=== PATIENT | female | born 1940 | race Hispanic/Latino ===

== ENCOUNTER 2022-09-10 03:18 | Inpatient (IN) | payer MEDICARE ==
[~2022-09-10] VITALS: Ht 121.9 cm; Wt 60.8 kg
[~2022-09-10 03:18] MED LIST: ASA81 MG PO; B COMPLEX #11 EACH PO; LANTUS100 UNIT/2 SQ; METFORMIN HCL500 M3 PO; Z.0.AMLODIPINE BESY1 PO; Z.0.ATENOLOL25 MG PO; Z.0.B12 5,000 MCG1 E SL; Z.0.CLONIDINE HCL0.2 PO; Z.0.JANUVIA100 MG PO; Z.0.LATANOPROST2.5 M OP; Z.0.LISINOPRIL40 MG PO; Z.0.NATEGLINIDE120 M PO; Z.0.SIMVASTATIN40 MG PO; Z.2.HYDROCODON-ACE1 PO; [UNRECOGNIZED DRUG - CODE] PO; [UNRECOGNIZED DRUG - OTHER] PO
[2022-09-10] MEDS ORDERED: ONDANSETRON HCL INJ 2MG/ML 2ML 2 MG/ML VIAL IV STA (03:23)
[2022-09-10] MEDS ORDERED: SODIUM CHLORIDE 0.9% 1000ML 1,000 ML IV ONE (03:30)
[2022-09-10] MEDS ORDERED: ACETAMINOPHEN 325 MG TAB PO ONE (03:30)
[2022-09-10 03:46] LABS: BASOPHILS % 0.3 % (0.0-1.0); HEMATOCRIT 35.6 % (34.2-44.1); HEMOGLOBIN 11.2 g/dL (12.0-16.0); LYMPHOCYTES # (AUTO) 0.5 (1.0-3.2); LYMPHOCYTES % 4.8 % (18.0-39.1); MEAN CORPUSCULAR HEMOGLOBIN 27.2 pg (28-32); MEAN CORPUSCULAR HGB CONC 31.5 g/dL (31-35); MEAN CORPUSCULAR VOLUME 86.4 fL (81-99); MONOCYTES # (AUTO) 0.2 (0.2-0.8); MONOCYTES % 2.1 % (4.4-11.3); NEUTROPHILS # (AUTO) 9.1 (2.1-6.9); NEUTROPHILS % 92.4 % (38.7-80.0); PLATELET COUNT 270 x10e3/uL (140-360); RED BLOOD COUNT 4.12 x10e6/uL (3.6-5.1); RED CELL DISTRIBUTION WIDTH 12.7 % (11.7-14.4)
[2022-09-10 04:07] LABS: ALBUMIN 4.4 g/dL (3.5-5.0); ALBUMIN/GLOBULIN RATIO 1.2 (0.8-2.0); ANION GAP 23.2 mmol/L (8-16); CALCIUM 8.2 mg/dL (8.4-10.2); CREATININE, SERUM 1.08 mg/dL (0.57-1.11); POTASSIUM 3.2 mmol/L (3.5-5.1)
[2022-09-10 04:11] LABS: CLARITY,URINE CLEAR (CLEAR); COLOR,URINE YELLOW (YELLOW); KETONES,URINE 2+ (NEGATIVE); LEUKOCYTE ESTERASE ,URINE NEGATIVE (NEGATIVE); NITRITE,URINE NEGATIVE (NEGATIVE); PROTEIN,URINE DIPSTICK 2+ (NEGATIVE); URINE UROBILINOGEN 0.2 mg/dL (0.2 - 1)
[2022-09-10 04:14] LABS: CREATINE KINASE MB 3.6 ng/mL (0-5.0)
[2022-09-10 04:16] LABS: BACTERIA,URINE RARE /HPF; EPITHELIAL CELLS,URINE FEW /LPF; RBC,URINE 0-5 /HPF (0-5); WBC,URINE (MAN) 0-5 /HPF (0-5)
[2022-09-10] MEDS ORDERED: CEFEPIME HCL 1 GM VIAL ONE (04:20)
[2022-09-10] MEDS ORDERED: ACETAMINOPHEN 1000 MG/100 ML IV STA (04:25)
[2022-09-10] MEDS ORDERED: IOPAMIDOL 370 MG/ML 100 ML INFUS..BTL INJ ONE (05:23)
[2022-09-10] MEDS: SODIUM CHLORIDE 0.9% 1000ML 1,000 ML IV SCH ×2 (06:43→18:33)
[2022-09-10 10:47] VITALS: BP 156/86
[2022-09-10 10:55] VITALS: BP 156/86
[2022-09-10] MEDS: ONDANSETRON HCL INJ 2MG/ML 2ML 2 MG/ML VIAL IV PRN (11:55)
[2022-09-10 14:00] VITALS: BP 183/80
[2022-09-10 16:38] VITALS: BP 179/79
[2022-09-10] MEDS ORDERED: DEXTROSE 50% SYRINGE 50 ML IV PRN (18:15)
[2022-09-10 18:21] LABS: ANION GAP 20.7 mmol/L (8-16); CALCIUM 8.4 mg/dL (8.4-10.2); CREATININE, SERUM 0.94 mg/dL (0.57-1.11)
[2022-09-10] MEDS: AMLODIPINE BESYLATE 10 MG TAB PO SCH (18:35)
[2022-09-10 18:37] LABS: POTASSIUM 2.7 mmol/L (3.5-5.1)
[2022-09-10] MEDS ORDERED: POTASSIUM CHLORIDE 20 MEQ TAB CR PO ONE ×2 (19:30→23:00)
[2022-09-10 20:00] VITALS: BP 168/75
[2022-09-10] MEDS: INSULIN LISPRO 100 UNIT/1 ML 3ML VIAL SQ SCH (21:30)
[2022-09-10] MEDS ORDERED: ACETAMINOPHEN 325 MG TAB PO PRN (21:30)
[2022-09-11] VITALS (8 sets, daily range): BP systolic 96–182; BP diastolic 65–105
[2022-09-11] MEDS: HYDRALAZINE HCL 20 MG/ML VIAL IV PRN ×2 (01:13→22:01)
[2022-09-11] MEDS: SODIUM CHLORIDE 0.9% 1000ML 1,000 ML IV SCH ×2 (02:10→12:50)
[2022-09-11 06:02] LABS: BASOPHILS % 0.1 % (0.0-1.0); HEMATOCRIT 36.7 % (34.2-44.1); HEMOGLOBIN 11.8 g/dL (12.0-16.0); LYMPHOCYTES # (AUTO) 0.8 (1.0-3.2); LYMPHOCYTES % 6.5 % (18.0-39.1); MEAN CORPUSCULAR HEMOGLOBIN 27.4 pg (28-32); MEAN CORPUSCULAR HGB CONC 32.2 g/dL (31-35); MEAN CORPUSCULAR VOLUME 85.2 fL (81-99); MONOCYTES # (AUTO) 0.8 (0.2-0.8); MONOCYTES % 6.6 % (4.4-11.3); NEUTROPHILS % 86.4 % (38.7-80.0); PLATELET COUNT 309 x10e3/uL (140-360); RED BLOOD COUNT 4.31 x10e6/uL (3.6-5.1); RED CELL DISTRIBUTION WIDTH 13.2 % (11.7-14.4)
[2022-09-11 06:24] LABS: ANION GAP 18.9 mmol/L (8-16); CALCIUM 8.4 mg/dL (8.4-10.2); CREATININE, SERUM 0.87 mg/dL (0.57-1.11)
[2022-09-11 06:25] LABS: POTASSIUM 2.9 mmol/L (3.5-5.1)
[2022-09-11] MEDS ORDERED: POTASSIUM CHLORIDE 20 MEQ TAB CR PO ONE ×2 (07:00→11:00)
[2022-09-11] MEDS: INSULIN LISPRO 100 UNIT/1 ML 3ML VIAL SQ SCH ×4 (07:30→22:05)
[2022-09-11] MEDS ORDERED: NON-FORMULARY MEDICATION (Lisinopril 40 MG) PO SCH (09:30)
[2022-09-11] MEDS: AMLODIPINE BESYLATE 10 MG TAB PO SCH (09:58)
[2022-09-11] MEDS ORDERED: AMLODIPINE BESYLATE 10 MG TAB PO SCH (10:00)
[2022-09-11] MEDS: ONDANSETRON HCL INJ 2MG/ML 2ML 2 MG/ML VIAL IV PRN (10:01)
[2022-09-11] MEDS: LISINOPRIL 20 MG TAB PO SCH (10:15)
[2022-09-11] MEDS: LATANOPROST(OPTH) 2.5 ML BTL OP SCH (22:00)
[2022-09-12] VITALS (7 sets, daily range): BP systolic 155–177; BP diastolic 58–85
[2022-09-12] MEDS: ONDANSETRON HCL INJ 2MG/ML 2ML 2 MG/ML VIAL IV PRN (01:04)
[2022-09-12] MEDS: SODIUM CHLORIDE 0.9% 1000ML 1,000 ML IV SCH ×3 (04:29→21:29)
[2022-09-12 06:30] LABS: ALBUMIN 3.7 g/dL (3.5-5.0); ALBUMIN/GLOBULIN RATIO 1.1 (0.8-2.0); ANION GAP 18.2 mmol/L (8-16); CALCIUM 8.7 mg/dL (8.4-10.2); CREATININE, SERUM 0.84 mg/dL (0.57-1.11); MAGNESIUM 1.3 MG/DL (1.3-2.1); POTASSIUM 3.2 mmol/L (3.5-5.1)
[2022-09-12] MEDS ORDERED: PANTOPRAZOLE SOD 40 MG TABEC PO SCH (07:30)
[2022-09-12] MEDS: INSULIN LISPRO 100 UNIT/1 ML 3ML VIAL SQ SCH ×4 (08:30→21:00)
[2022-09-12] MEDS: ASPIRIN 81 MG ENTERIC COATED PO SCH (09:04)
[2022-09-12] MEDS: SITAGLIPTIN 100 MG TAB PO SCH (09:04)
[2022-09-12] MEDS: AMLODIPINE BESYLATE 10 MG TAB PO SCH (09:04)
[2022-09-12] MEDS: LISINOPRIL 20 MG TAB PO SCH (09:06)
[2022-09-12] MEDS: ATENOLOL 50 MG TAB PO SCH (11:59)
[2022-09-12] MEDS ORDERED: POTASSIUM CHLORIDE 20 MEQ TAB CR PO ONE (12:00)
[2022-09-12] MEDS ORDERED: KCL 20 MEQ PACKET/ ORAL SOLN PO ONE (12:15)
[2022-09-12] MEDS: PANTOPRAZOLE SOD 40 MG TABEC PO SCH (16:55)
[2022-09-12] MEDS ORDERED: SIMVASTATIN 40 MG TAB PO SCH (21:00)
[2022-09-12] MEDS: LATANOPROST(OPTH) 2.5 ML BTL OP SCH (21:28)
[2022-09-13] VITALS: BP 168/66
[2022-09-13] MEDS: METOCLOPRAMIDE HCL 10 MG/2ML VIAL IV SCH ×3 (00:43→11:59)
[2022-09-13 04:00] VITALS: BP 177/66
[2022-09-13 05:54] LABS: BASOPHILS % 0.2 % (0.0-1.0); EOSINOPHILS % 0.3 % (0.0-6.0); HEMATOCRIT 33.7 % (34.2-44.1); HEMOGLOBIN 11.1 g/dL (12.0-16.0); LYMPHOCYTES # (AUTO) 1.4 (1.0-3.2); LYMPHOCYTES % 11.7 % (18.0-39.1); MEAN CORPUSCULAR HEMOGLOBIN 27.2 pg (28-32); MEAN CORPUSCULAR HGB CONC 32.9 g/dL (31-35); MEAN CORPUSCULAR VOLUME 82.6 fL (81-99); MONOCYTES % 8.3 % (4.4-11.3); NEUTROPHILS # (AUTO) 9.6 (2.1-6.9); NEUTROPHILS % 78.9 % (38.7-80.0); PLATELET COUNT 281 x10e3/uL (140-360); RED BLOOD COUNT 4.08 x10e6/uL (3.6-5.1); RED CELL DISTRIBUTION WIDTH 13.8 % (11.7-14.4)
[2022-09-13 06:11] LABS: ANION GAP 14.1 mmol/L (8-16); CALCIUM 8.2 mg/dL (8.4-10.2); CREATININE, SERUM 0.82 mg/dL (0.57-1.11); MAGNESIUM 1.4 MG/DL (1.3-2.1); POTASSIUM 3.1 mmol/L (3.5-5.1)
[2022-09-13] MEDS: INSULIN LISPRO 100 UNIT/1 ML 3ML VIAL SQ SCH ×2 (07:30→11:30)
[2022-09-13 07:52] VITALS: BP 170/69
[2022-09-13] MEDS: ASPIRIN 81 MG ENTERIC COATED PO SCH (08:47)
[2022-09-13] MEDS: AMLODIPINE BESYLATE 10 MG TAB PO SCH (08:47)
[2022-09-13] MEDS: SITAGLIPTIN 100 MG TAB PO SCH (08:47)
[2022-09-13] MEDS: LISINOPRIL 20 MG TAB PO SCH (08:48)
[2022-09-13] MEDS: PANTOPRAZOLE SOD 40 MG TABEC PO SCH (08:48)
[2022-09-13] MEDS: ATENOLOL 50 MG TAB PO SCH (08:49)
[2022-09-13 09:03] VITALS: BP 170/69
[2022-09-13] MEDS ORDERED: KCL 20 MEQ PACKET/ ORAL SOLN PO ONE (10:45)
[2022-09-13] MEDS ORDERED: REGLAN5 MG PO (11:20)
[2022-09-13] MEDS ORDERED: INSULIN GL100 UNIT/3 SQ (11:28)
[2022-09-13 11:42] VITALS: BP 146/59
== END 2022-09-13 13:06 | disposition home or self-care (01) | DRG 392 ==
LOC: ER 03:30 → ERHOLD 05:48 → MED/SURG2 13:39 → OBSVTOIN 09-12 08:16
PROVIDERS: ADMIT Internal Medicine; ATTEND Internal Medicine
DX: K52.9 Noninfective gastroenteritis and colitis, unspecified (principal); E87.20 Acidosis, unspecified; K57.32 Diverticulitis of large intestine without perforation or abscess without bleeding; E86.0 Dehydration; I48.91 Unspecified atrial fibrillation; E78.5 Hyperlipidemia, unspecified; E11.9 Type 2 diabetes mellitus without complications; I10 Essential (primary) hypertension; R00.0 Tachycardia, unspecified; Z20.822 Contact with and (suspected) exposure to COVID-19; Z79.82 Long term (current) use of aspirin; Z79.84 Long term (current) use of oral hypoglycemic drugs; Z79.4 Long term (current) use of insulin
CPT/HCPCS: 36415; 71045; 74177; 80048; 80053; 81001; 82550; 82553; 82948; 83605; 83690; 83735; 84484; 85025; 87040; 87400; 93005; 94799; 99284; G0378; J0360; J0692; J2405; J2765; J7030; Q9967

== ENCOUNTER 2023-03-31 14:42 | Observation (INO) | payer MEDICARE ==
[~2023-03-31] VITALS: Ht 149.9 cm; Wt 60.3 kg
[~2023-03-31 14:42] MED LIST changes: +INSULIN GL100 UNIT/3 SQ; +REGLAN5 MG PO
[2023-03-31 15:28] LABS: BASOPHILS % 0.5 % (0.0-1.0); EOSINOPHILS # (AUTO) 0.1 (0.0-0.4); EOSINOPHILS % 1.9 % (0.0-6.0); HEMATOCRIT 27.9 % (34.2-44.1); HEMOGLOBIN 8.8 g/dL (12.0-16.0); LYMPHOCYTES % 30.7 % (18.0-39.1); MEAN CORPUSCULAR HEMOGLOBIN 27.8 pg (28-32); MEAN CORPUSCULAR HGB CONC 31.5 g/dL (31-35); MEAN CORPUSCULAR VOLUME 88.3 fL (81-99); MONOCYTES # (AUTO) 0.5 (0.2-0.8); MONOCYTES % 8.2 % (4.4-11.3); NEUTROPHILS # (AUTO) 3.7 (2.1-6.9); NEUTROPHILS % 57.9 % (38.7-80.0); PLATELET COUNT 223 x10e3/uL (140-360); RED BLOOD COUNT 3.16 x10e6/uL (3.6-5.1)
[2023-03-31] MEDS ORDERED: SODIUM CHLORIDE 0.9% 1000ML 500 ML IV ONE (15:30)
[2023-03-31 15:43] LABS: ALBUMIN/GLOBULIN RATIO 1.4 (0.8-2.0); ANION GAP 9.8 mmol/L (8-16); CALCIUM 8.2 mg/dL (8.4-10.2); CREATININE, SERUM 2.12 mg/dL (0.57-1.11); POTASSIUM 3.8 mmol/L (3.5-5.1)
[2023-03-31 16:59] LABS: CLARITY,URINE CLEAR (CLEAR); COLOR,URINE YELLOW (YELLOW); KETONES,URINE NEGATIVE (NEGATIVE); LEUKOCYTE ESTERASE ,URINE NEGATIVE (NEGATIVE); NITRITE,URINE NEGATIVE (NEGATIVE); PROTEIN,URINE DIPSTICK NEGATIVE (NEGATIVE)
[2023-03-31 17:00] LABS: BACTERIA,URINE RARE /HPF; EPITHELIAL CELLS,URINE FEW /LPF; RBC,URINE 0-5 /HPF (0-5); URINE UROBILINOGEN 0.2 mg/dL (0.2 - 1); WBC,URINE (MAN) 0-5 /HPF (0-5)
[2023-03-31] MEDS ORDERED: DEXTROSE 50% SYRINGE 50 ML IV STA (18:14)
[2023-03-31] MEDS ORDERED: DEXTROSE 50% SYRINGE 50 ML IV ONE (18:14)
[2023-03-31] MEDS ORDERED: DEXTROSE 5%/0.9% SOD CHL 1,000 ML IV ONE (19:45)
[2023-03-31] MEDS ORDERED: ONDANSETRON HCL INJ 2MG/ML 2ML 2 MG/ML VIAL IV PRN (19:45)
[2023-03-31] MEDS: SODIUM CHLORIDE 0.9% 1000ML 1,000 ML IV SCH (19:45)
[2023-03-31 21:04] LABS: CREATINE KINASE MB 1.8 ng/mL (0-5.0)
[2023-04-01] VITALS (9 sets, daily range): BP systolic 140–171; BP diastolic 57–70; PULSE 60–82; RESP 14–20; TEMP 97.8–98.8; O2SAT 98–100
[2023-04-01] MEDS ORDERED: ACETAMINOPHEN 325 MG TAB PO PRN (04:30)
[2023-04-01] MEDS ORDERED: DOCUSATE SODIUM 100 MG CAP PO PRN (04:30)
[2023-04-01] MEDS ORDERED: DEXTROSE 50% SYRINGE 50 ML IV PRN (04:30)
[2023-04-01] MEDS ORDERED: MAGNESIUM/ALUMINUM/SIMETHICONE 30 ML UDC PO PRN (04:30)
[2023-04-01] MEDS ORDERED: MELATONIN 3 MG TAB PO PRN (04:30)
[2023-04-01] MEDS ORDERED: GUAIFENESIN/DEXTROMETHORPHAN LIQD 5 ML UDC PO PRN (04:30)
[2023-04-01] MEDS ORDERED: Morphine 2mg Syringe 2 MG/ML SYR IV PRN (04:30)
[2023-04-01 05:29] LABS: BASOPHILS % 0.4 % (0.0-1.0); EOSINOPHILS # (AUTO) 0.1 (0.0-0.4); EOSINOPHILS % 1.2 % (0.0-6.0); HEMATOCRIT 31.8 % (34.2-44.1); HEMOGLOBIN 10.1 g/dL (12.0-16.0); LYMPHOCYTES # (AUTO) 2.1 (1.0-3.2); LYMPHOCYTES % 24.7 % (18.0-39.1); MEAN CORPUSCULAR HEMOGLOBIN 27.9 pg (28-32); MEAN CORPUSCULAR HGB CONC 31.8 g/dL (31-35); MEAN CORPUSCULAR VOLUME 87.8 fL (81-99); MONOCYTES # (AUTO) 0.6 (0.2-0.8); MONOCYTES % 7.3 % (4.4-11.3); NEUTROPHILS # (AUTO) 5.6 (2.1-6.9); NEUTROPHILS % 65.6 % (38.7-80.0); PLATELET COUNT 237 x10e3/uL (140-360); RED BLOOD COUNT 3.62 x10e6/uL (3.6-5.1)
[2023-04-01 05:50] LABS: CALCIUM 8.4 mg/dL (8.4-10.2); CREATININE, SERUM 1.56 mg/dL (0.57-1.11)
[2023-04-01] MEDS: HYDROCODONE/APAP 5MG-325MG TAB PO PRN ×2 (06:18→19:05)
[2023-04-01 06:56] LABS: CREATINE KINASE MB 1.2 ng/mL (0-5.0)
[2023-04-01] MEDS: INSULIN REGULAR, HUMAN 100 UNIT/1 ML SQ SCH ×4 (07:30→21:08)
[2023-04-01] MEDS: SODIUM CHLORIDE 0.9% 1000ML 1,000 ML IV SCH ×2 (09:05→20:59)
[2023-04-01] MEDS: ASPIRIN 81 MG ENTERIC COATED PO SCH (09:58)
[2023-04-01] MEDS: MULTIVITAMINS/MINERALS TAB PO SCH (09:58)
[2023-04-01] MEDS: AMLODIPINE BESYLATE 10 MG TAB PO SCH (09:59)
[2023-04-01] MEDS: SIMVASTATIN 40 MG TAB PO SCH (09:59)
[2023-04-01] MEDS: METOCLOPRAMIDE HCL 10 MG TAB PO SCH ×4 (09:59→21:02)
[2023-04-01] MEDS: PANTOPRAZOLE SOD 40 MG TABEC PO SCH (10:00)
[2023-04-01] MEDS: ATENOLOL 50 MG TAB PO SCH (10:00)
[2023-04-01 14:25] LABS: CREATINE KINASE MB 3.7 ng/mL (0-5.0)
[2023-04-01] MEDS ORDERED: INSULIN GL100 UNIT/3 SQ (15:48)
[2023-04-01] MEDS ORDERED: LATANOPROST(OPTH) 2.5 ML BTL OP SCH (21:00)
[2023-04-02 01:00] VITALS: BP 189/83; PULSE 70; RESP 19; TEMP 98.6; O2SAT 100
[2023-04-02] MEDS: HYDRALAZINE HCL 20 MG/ML VIAL IV PRN ×2 (01:08→05:59)
[2023-04-02] MEDS: HYDROCODONE/APAP 5MG-325MG TAB PO PRN ×2 (03:40→09:43)
[2023-04-02 05:00] VITALS: BP 174/64; PULSE 88; RESP 20; TEMP 98.9; O2SAT 98
[2023-04-02 05:00] LABS: BASOPHILS % 0.2 % (0.0-1.0); EOSINOPHILS % 0.4 % (0.0-6.0); HEMATOCRIT 31.1 % (34.2-44.1); HEMOGLOBIN 10.2 g/dL (12.0-16.0); LYMPHOCYTES # (AUTO) 1.7 (1.0-3.2); LYMPHOCYTES % 18.5 % (18.0-39.1); MEAN CORPUSCULAR HEMOGLOBIN 27.8 pg (28-32); MEAN CORPUSCULAR HGB CONC 32.8 g/dL (31-35); MEAN CORPUSCULAR VOLUME 84.7 fL (81-99); MONOCYTES # (AUTO) 0.7 (0.2-0.8); MONOCYTES % 7.8 % (4.4-11.3); NEUTROPHILS # (AUTO) 6.6 (2.1-6.9); NEUTROPHILS % 72.7 % (38.7-80.0); PLATELET COUNT 240 x10e3/uL (140-360); RED BLOOD COUNT 3.67 x10e6/uL (3.6-5.1); RED CELL DISTRIBUTION WIDTH 13.5 % (11.7-14.4)
[2023-04-02 05:21] LABS: ANION GAP 11.2 mmol/L (8-16); CALCIUM 8.2 mg/dL (8.4-10.2); CREATININE, SERUM 1.29 mg/dL (0.57-1.11); POTASSIUM 3.2 mmol/L (3.5-5.1)
[2023-04-02 05:45] LABS: FERRITIN 16.25 ng/mL (4.63-204.00)
[2023-04-02 08:25] VITALS: BP 128/61; PULSE 90; RESP 21; TEMP 97.9; O2SAT 99
[2023-04-02] MEDS: INSULIN REGULAR, HUMAN 100 UNIT/1 ML SQ SCH ×2 (08:30→12:30)
[2023-04-02] MEDS: ASPIRIN 81 MG ENTERIC COATED PO SCH (09:39)
[2023-04-02] MEDS: PANTOPRAZOLE SOD 40 MG TABEC PO SCH (09:39)
[2023-04-02] MEDS: MULTIVITAMINS/MINERALS TAB PO SCH (09:39)
[2023-04-02] MEDS: METOCLOPRAMIDE HCL 10 MG TAB PO SCH ×2 (09:39→12:51)
[2023-04-02] MEDS: SIMVASTATIN 40 MG TAB PO SCH (09:40)
[2023-04-02] MEDS: ATENOLOL 50 MG TAB PO SCH (09:40)
[2023-04-02] MEDS: AMLODIPINE BESYLATE 10 MG TAB PO SCH (09:40)
[2023-04-02 09:52] VITALS: BP 128/61; PULSE 90; RESP 21; TEMP 97.9; O2SAT 99
[2023-04-02] MEDS ORDERED: POTASSIUM CHLORIDE 20 MEQ TAB CR PO ONE (11:30)
[2023-04-02] MEDS: SODIUM CHLORIDE 0.9% 1000ML 1,000 ML IV SCH (11:45)
[2023-04-02] MEDS ORDERED: ONDANSETRON HCL 4 MG ORAL DISINTEGRATING TAB PO PRN (12:15)
[2023-04-02 12:55] VITALS: BP 157/63; PULSE 79; RESP 19; TEMP 97.4; O2SAT 99
[2023-04-02 16:00] VITALS: BP 137/70; PULSE 90; RESP 19; TEMP 97.8; O2SAT 100
== END 2023-04-02 16:10 | disposition home or self-care (01) ==
LOC: ER 14:48 → ERHOLD 19:38 → INTOOBSV 19:38 → MED/SURG 22:44
PROVIDERS: ADMIT Internal Medicine Critical Care Medicine; ATTEND Internal Medicine Critical Care Medicine
DX: N17.9 Acute kidney failure, unspecified (principal); E86.0 Dehydration; R53.1 Weakness; R63.0 Anorexia; E11.649 Type 2 diabetes mellitus with hypoglycemia without coma; I10 Essential (primary) hypertension; E78.5 Hyperlipidemia, unspecified; I48.91 Unspecified atrial fibrillation; I25.10 Atherosclerotic heart disease of native coronary artery without angina pectoris; D50.9 Iron deficiency anemia, unspecified; D63.8 Anemia in other chronic diseases classified elsewhere; M17.10 Unilateral primary osteoarthritis, unspecified knee; R00.1 Bradycardia, unspecified; Z20.822 Contact with and (suspected) exposure to COVID-19; Z79.82 Long term (current) use of aspirin; Z79.84 Long term (current) use of oral hypoglycemic drugs; Z79.4 Long term (current) use of insulin; Z79.899 Other long term (current) drug therapy
CPT/HCPCS: 36415 ×3; 71045; 80048 ×2; 80053; 81001; 82550 ×2; 82553 ×2; 82728; 82948 ×3; 83540; 84466; 84484 ×2; 85025 ×3; 87086; 93005 ×2; 96372; 97110; 97116 ×2; 97162; 97530 ×2; 99284; G0378 ×3; J0360; J7030 ×3; J7042; J7799; J8597 ×2; S0164 ×2; U0002

== ENCOUNTER 2023-04-03 16:54 | Inpatient (IN) | payer MEDICARE ==
[~2023-04-03] VITALS: Ht 271.8 cm; Wt 60.3 kg
[2023-04-03 17:32] LABS: BASOPHILS % 0.2 % (0.0-1.0); EOSINOPHILS % 0.2 % (0.0-6.0); HEMATOCRIT 27.6 % (34.2-44.1); HEMOGLOBIN 8.6 g/dL (12.0-16.0); LYMPHOCYTES # (AUTO) 1.2 (1.0-3.2); LYMPHOCYTES % 13.1 % (18.0-39.1); MEAN CORPUSCULAR HEMOGLOBIN 27.4 pg (28-32); MEAN CORPUSCULAR HGB CONC 31.2 g/dL (31-35); MEAN CORPUSCULAR VOLUME 87.9 fL (81-99); MONOCYTES # (AUTO) 0.9 (0.2-0.8); MONOCYTES % 9.9 % (4.4-11.3); NEUTROPHILS # (AUTO) 6.9 (2.1-6.9); PLATELET COUNT 201 x10e3/uL (140-360); RED BLOOD COUNT 3.14 x10e6/uL (3.6-5.1); RED CELL DISTRIBUTION WIDTH 14.4 % (11.7-14.4)
[2023-04-03 17:47] LABS: INR 1.02; PROTHROMBIN TIME 13.9 seconds (11.9-14.5)
[2023-04-03 17:48] LABS: PARTIAL THROMBOPLASTIN TIME 33.5 seconds (23.8-35.5)
[2023-04-03 17:56] LABS: ALBUMIN 2.7 g/dL (3.5-5.0); ANION GAP 12.2 mmol/L (8-16); CALCIUM 8.1 mg/dL (8.4-10.2); CREATININE, SERUM 1.93 mg/dL (0.57-1.11); POTASSIUM 4.2 mmol/L (3.5-5.1)
[2023-04-03 18:03] LABS: CREATINE KINASE MB 30.1 ng/mL (0-5.0)
[2023-04-03] MEDS ORDERED: SODIUM CHLORIDE 0.9% 1000ML 1,000 ML IV STA (19:12)
[2023-04-03] MEDS ORDERED: ONDANSETRON HCL INJ 2MG/ML 2ML 2 MG/ML VIAL IV PRN (19:30)
[2023-04-03] MEDS ORDERED: SODIUM CHLORIDE FLUSH 10 ML SYR INJ PRN (19:30)
[2023-04-03 20:02] LABS: CREATINE KINASE MB 23.9 ng/mL (0-5.0)
[2023-04-03 21:53] LABS: CLARITY,URINE SL CLOUDY (CLEAR); COLOR,URINE YELLOW (YELLOW); KETONES,URINE NEGATIVE (NEGATIVE); LEUKOCYTE ESTERASE ,URINE NEGATIVE (NEGATIVE); NITRITE,URINE NEGATIVE (NEGATIVE); PROTEIN,URINE DIPSTICK 2+ (NEGATIVE); URINE UROBILINOGEN 0.2 mg/dL (0.2 - 1)
[2023-04-03 22:00] LABS: BACTERIA,URINE MANY /HPF; EPITHELIAL CELLS,URINE FEW /LPF; RBC,URINE 0-5 /HPF (0-5); WBC,URINE (MAN) 0-5 /HPF (0-5)
[2023-04-03 22:30] VITALS: BP 138/71; PULSE 70; RESP 18; TEMP 97.1; O2SAT 100
[2023-04-03 22:45] VITALS: BP 138/71; PULSE 70; RESP 18; TEMP 97.1; O2SAT 100
[2023-04-04] VITALS (7 sets, daily range): BP systolic 127–177; BP diastolic 48–117; PULSE 59–88; RESP 16–19; TEMP 97.1–98.7; O2SAT 97–99
[2023-04-04 04:53] LABS: BASOPHILS % 0.4 % (0.0-1.0); EOSINOPHILS # (AUTO) 0.1 (0.0-0.4); EOSINOPHILS % 0.9 % (0.0-6.0); HEMATOCRIT 26.5 % (34.2-44.1); HEMOGLOBIN 8.2 g/dL (12.0-16.0); LYMPHOCYTES # (AUTO) 1.4 (1.0-3.2); LYMPHOCYTES % 19.3 % (18.0-39.1); MEAN CORPUSCULAR HEMOGLOBIN 27.8 pg (28-32); MEAN CORPUSCULAR HGB CONC 30.9 g/dL (31-35); MEAN CORPUSCULAR VOLUME 89.8 fL (81-99); MONOCYTES # (AUTO) 0.6 (0.2-0.8); MONOCYTES % 8.9 % (4.4-11.3); NEUTROPHILS % 70.2 % (38.7-80.0); PLATELET COUNT 199 x10e3/uL (140-360); RED BLOOD COUNT 2.95 x10e6/uL (3.6-5.1); RED CELL DISTRIBUTION WIDTH 14.4 % (11.7-14.4)
[2023-04-04 05:12] LABS: ANION GAP 11.2 mmol/L (8-16); CALCIUM 7.9 mg/dL (8.4-10.2); CREATININE, SERUM 1.33 mg/dL (0.57-1.11); POTASSIUM 4.2 mmol/L (3.5-5.1)
[2023-04-04 06:10] LABS: CREATINE KINASE MB 13.2 ng/mL (0-5.0)
[2023-04-04] MEDS ORDERED: DEXTROSE 50% SYRINGE 50 ML IV PRN (08:15)
[2023-04-04] MEDS: SODIUM CHLORIDE 0.9% 1000ML 1,000 ML IV SCH ×2 (08:59→20:06)
[2023-04-04] MEDS: AMLODIPINE BESYLATE 5 MG TAB PO SCH (09:00)
[2023-04-04] MEDS: VITAMIN B COMPLEX PO SCH (09:00)
[2023-04-04] MEDS: ASPIRIN 81 MG ENTERIC COATED PO SCH (09:00)
[2023-04-04 09:13] LABS: THYROID STIMULATING HORMONE 0.648 uIU/mL (0.350-4.940)
[2023-04-04] MEDS: METOCLOPRAMIDE HCL 10 MG TAB PO SCH ×3 (12:05→20:06)
[2023-04-04] MEDS: LATANOPROST(OPTH) 2.5 ML BTL OP SCH (12:06)
[2023-04-04] MEDS: INSULIN LISPRO 100 UNIT/1 ML 3ML VIAL SQ SCH ×3 (12:08→20:15)
[2023-04-04 14:35] LABS: CREATINE KINASE MB 7.1 ng/mL (0-5.0)
[2023-04-04] MEDS: ENOXAPARIN 30 MG/0.3 ML SYR SC SCH (16:10)
[2023-04-04] MEDS: INSULIN GLARGINE 100 UNITS/ML VIAL SQ SCH (20:16)
[2023-04-04] MEDS: HYDROCODONE/APAP 7.5MG-325MG 1 EA TAB PO PRN (23:22)
[2023-04-05] VITALS (9 sets, daily range): BP systolic 160–181; BP diastolic 66–89; PULSE 65–109; RESP 16–20; TEMP 97.1–98.4; O2SAT 97–100
[2023-04-05] MEDS: SODIUM CHLORIDE 0.9% 1000ML 1,000 ML IV SCH ×2 (06:14→15:44)
[2023-04-05 07:22] LABS: BASOPHILS % 0.5 % (0.0-1.0); EOSINOPHILS # (AUTO) 0.1 (0.0-0.4); EOSINOPHILS % 1.1 % (0.0-6.0); HEMATOCRIT 29.5 % (34.2-44.1); HEMOGLOBIN 9.5 g/dL (12.0-16.0); LYMPHOCYTES # (AUTO) 1.4 (1.0-3.2); LYMPHOCYTES % 19.4 % (18.0-39.1); MEAN CORPUSCULAR HEMOGLOBIN 28.3 pg (28-32); MEAN CORPUSCULAR HGB CONC 32.2 g/dL (31-35); MEAN CORPUSCULAR VOLUME 87.8 fL (81-99); MONOCYTES # (AUTO) 0.6 (0.2-0.8); MONOCYTES % 8.6 % (4.4-11.3); NEUTROPHILS # (AUTO) 5.2 (2.1-6.9); PLATELET COUNT 214 x10e3/uL (140-360); RED BLOOD COUNT 3.36 x10e6/uL (3.6-5.1); RED CELL DISTRIBUTION WIDTH 14.2 % (11.7-14.4)
[2023-04-05] MEDS: INSULIN LISPRO 100 UNIT/1 ML 3ML VIAL SQ SCH ×4 (07:30→20:26)
[2023-04-05 07:42] LABS: ANION GAP 11.7 mmol/L (8-16); CALCIUM 8.4 mg/dL (8.4-10.2); CREATININE, SERUM 0.97 mg/dL (0.57-1.11); POTASSIUM 3.7 mmol/L (3.5-5.1)
[2023-04-05] MEDS: AMLODIPINE BESYLATE 5 MG TAB PO SCH ×2 (08:23→19:51)
[2023-04-05] MEDS: ASPIRIN 81 MG ENTERIC COATED PO SCH (08:23)
[2023-04-05] MEDS: METOCLOPRAMIDE HCL 10 MG TAB PO SCH ×4 (08:23→19:51)
[2023-04-05] MEDS: LATANOPROST(OPTH) 2.5 ML BTL OP SCH (08:24)
[2023-04-05] MEDS: VITAMIN B COMPLEX PO SCH (08:24)
[2023-04-05] MEDS: HYDROCODONE/APAP 7.5MG-325MG 1 EA TAB PO PRN ×3 (10:40→19:51)
[2023-04-05] MEDS: ENOXAPARIN 30 MG/0.3 ML SYR SC SCH (17:12)
[2023-04-05] MEDS: INSULIN GLARGINE 100 UNITS/ML VIAL SQ SCH (20:26)
[2023-04-06] VITALS (7 sets, daily range): BP systolic 146–180; BP diastolic 73–87; PULSE 107–120; RESP 16–18; TEMP 97.8–98.4; O2SAT 97–99
[2023-04-06] MEDS: SODIUM CHLORIDE 0.9% 1000ML 1,000 ML IV SCH ×3 (01:38→22:38)
[2023-04-06] MEDS: HYDROCODONE/APAP 7.5MG-325MG 1 EA TAB PO PRN ×3 (01:38→17:19)
[2023-04-06] MEDS: INSULIN LISPRO 100 UNIT/1 ML 3ML VIAL SQ SCH ×4 (08:14→21:14)
[2023-04-06] MEDS: METOCLOPRAMIDE HCL 10 MG TAB PO SCH ×4 (08:18→21:01)
[2023-04-06] MEDS: AMLODIPINE BESYLATE 5 MG TAB PO SCH (08:18)
[2023-04-06] MEDS: ASPIRIN 81 MG ENTERIC COATED PO SCH (08:19)
[2023-04-06] MEDS: VITAMIN B COMPLEX PO SCH (08:19)
[2023-04-06] MEDS: LATANOPROST(OPTH) 2.5 ML BTL OP SCH (08:19)
[2023-04-06] MEDS: ENOXAPARIN 30 MG/0.3 ML SYR SC SCH (17:19)
[2023-04-06] MEDS: INSULIN GLARGINE 100 UNITS/ML VIAL SQ SCH (21:15)
[2023-04-07] VITALS: BP 145/73; PULSE 96; RESP 20; TEMP 97.4; O2SAT 99
[2023-04-07] MEDS: HYDROCODONE/APAP 7.5MG-325MG 1 EA TAB PO PRN ×2 (02:30→09:43)
[2023-04-07 05:33] VITALS: BP 148/83; PULSE 101; RESP 16; TEMP 97.4; O2SAT 100
[2023-04-07] MEDS: INSULIN LISPRO 100 UNIT/1 ML 3ML VIAL SQ SCH ×2 (07:30→12:18)
[2023-04-07 07:53] LABS: BASOPHILS % 0.5 % (0.0-1.0); EOSINOPHILS # (AUTO) 0.1 (0.0-0.4); EOSINOPHILS % 1.1 % (0.0-6.0); HEMATOCRIT 30.8 % (34.2-44.1); HEMOGLOBIN 9.9 g/dL (12.0-16.0); LYMPHOCYTES # (AUTO) 1.7 (1.0-3.2); LYMPHOCYTES % 19.4 % (18.0-39.1); MEAN CORPUSCULAR HEMOGLOBIN 27.9 pg (28-32); MEAN CORPUSCULAR HGB CONC 32.1 g/dL (31-35); MEAN CORPUSCULAR VOLUME 86.8 fL (81-99); MONOCYTES # (AUTO) 0.6 (0.2-0.8); MONOCYTES % 7.1 % (4.4-11.3); NEUTROPHILS # (AUTO) 6.3 (2.1-6.9); NEUTROPHILS % 71.7 % (38.7-80.0); PLATELET COUNT 277 x10e3/uL (140-360); RED BLOOD COUNT 3.55 x10e6/uL (3.6-5.1); RED CELL DISTRIBUTION WIDTH 14.1 % (11.7-14.4)
[2023-04-07 08:12] LABS: ANION GAP 10.8 mmol/L (8-16); CREATININE, SERUM 0.86 mg/dL (0.57-1.11); POTASSIUM 3.8 mmol/L (3.5-5.1)
[2023-04-07 08:15] VITALS: BP 167/77; PULSE 101; RESP 17; TEMP 98.6; O2SAT 99
[2023-04-07] MEDS ORDERED: ONDANSETRON HCL 4 MG ORAL DISINTEGRATING TAB PO PRN (08:30)
[2023-04-07] MEDS: LATANOPROST(OPTH) 2.5 ML BTL OP SCH (09:00)
[2023-04-07] MEDS ORDERED: METOPROLOL TARTRATE 50 MG TAB PO SCH (09:00)
[2023-04-07] MEDS: VITAMIN B COMPLEX PO SCH (09:00)
[2023-04-07] MEDS: ASPIRIN 81 MG ENTERIC COATED PO SCH (09:41)
[2023-04-07] MEDS: METOCLOPRAMIDE HCL 10 MG TAB PO SCH ×2 (09:41→12:55)
[2023-04-07] MEDS: AMLODIPINE BESYLATE 5 MG TAB PO SCH (09:42)
[2023-04-07 09:51] VITALS: BP 167/77; PULSE 101; RESP 17; TEMP 98.6; O2SAT 99
[2023-04-07 11:56] VITALS: BP 148/71; PULSE 82; RESP 20; TEMP 97.8; O2SAT 100
== END 2023-04-07 14:24 | disposition home health service (06) | DRG 683 ==
LOC: ER 17:06 → OBSVTOIN 19:18 → INTOOBSV 19:18 → ERHOLD 19:18 → MED/SURG 22:02
PROVIDERS: ADMIT Internal Medicine; ATTEND Internal Medicine
DX: N17.9 Acute kidney failure, unspecified (principal); E44.0 Moderate protein-calorie malnutrition; M62.82 Rhabdomyolysis; E11.22 Type 2 diabetes mellitus with diabetic chronic kidney disease; N18.9 Chronic kidney disease, unspecified; D50.9 Iron deficiency anemia, unspecified; D63.1 Anemia in chronic kidney disease; E86.0 Dehydration; R29.6 Repeated falls; R53.81 Other malaise; I48.91 Unspecified atrial fibrillation; I25.10 Atherosclerotic heart disease of native coronary artery without angina pectoris; E78.5 Hyperlipidemia, unspecified; Z90.49 Acquired absence of other specified parts of digestive tract; Z96.653 Presence of artificial knee joint, bilateral; Z79.82 Long term (current) use of aspirin; Z79.891 Long term (current) use of opiate analgesic; Z79.4 Long term (current) use of insulin; Z79.899 Other long term (current) drug therapy
CPT/HCPCS: 36415; 70450; 71045; 80048; 80053; 81001; 82550; 82553; 82607; 82948; 83036; 83540; 84443; 84466; 84484; 85025; 85610; 85730; 93005; 93970; 99284; J1650; J1815; J7030

== ENCOUNTER 2023-05-03 15:15 | Inpatient (IN) | payer MEDICARE ==
[~2023-05-03] VITALS: Ht 165.1 cm; Wt 72.6 kg
[2023-05-03] MEDS ORDERED: SODIUM CHLORIDE 0.9% 1000ML 1,000 ML IV ONE (16:15)
[2023-05-03] MEDS ORDERED: ONDANSETRON HCL INJ 2MG/ML 2ML 2 MG/ML VIAL IV STA (16:15)
[2023-05-03 17:08] LABS: BASOPHILS % 0.2 % (0.0-1.0); HEMATOCRIT 34.1 % (34.2-44.1); HEMOGLOBIN 10.8 g/dL (12.0-16.0); LYMPHOCYTES # (AUTO) 0.6 (1.0-3.2); LYMPHOCYTES % 3.7 % (18.0-39.1); MEAN CORPUSCULAR HEMOGLOBIN 27.6 pg (28-32); MEAN CORPUSCULAR HGB CONC 31.7 g/dL (31-35); MONOCYTES # (AUTO) 1.1 (0.2-0.8); NEUTROPHILS # (AUTO) 13.8 (2.1-6.9); NEUTROPHILS % 88.6 % (38.7-80.0); PLATELET COUNT 260 x10e3/uL (140-360); RED BLOOD COUNT 3.92 x10e6/uL (3.6-5.1); RED CELL DISTRIBUTION WIDTH 13.6 % (11.7-14.4)
[2023-05-03 17:21] LABS: AMPHETAMINES SCREEN,URINE NEGATIVE (NEGATIVE); PHENCYCLIDINE SCREEN,URINE NEGATIVE (NEGATIVE)
[2023-05-03 17:22] LABS: BENZODIAZEPINES SCREEN,URINE NEGATIVE (NEGATIVE)
[2023-05-03 17:25] LABS: CLARITY,URINE CLOUDY (CLEAR); COLOR,URINE AMBER (YELLOW)
[2023-05-03 17:26] LABS: KETONES,URINE TRACE (NEGATIVE); LEUKOCYTE ESTERASE ,URINE NEGATIVE (NEGATIVE); NITRITE,URINE NEGATIVE (NEGATIVE); PROTEIN,URINE DIPSTICK 2+ (NEGATIVE); URINE UROBILINOGEN 1 mg/dL (0.2 - 1)
[2023-05-03 17:36] LABS: BACTERIA,URINE MANY /HPF; EPITHELIAL CELLS,URINE MANY /LPF
[2023-05-03 17:37] LABS: ALBUMIN 3.2 g/dL (3.5-5.0); ANION GAP 16.5 mmol/L (8-16); CALCIUM 8.8 mg/dL (8.4-10.2); CREATININE, SERUM 2.02 mg/dL (0.57-1.11); POTASSIUM 4.5 mmol/L (3.5-5.1); TRANSITIONAL EPI CELLS,URINE MODERATE
[2023-05-03 17:39] LABS: SALICYLATE < 5.0 mg/dL (0-30)
[2023-05-03] MEDS ORDERED: CEFTRIAXONE 1 GM VIAL IV ONE (18:30)
[2023-05-03] MEDS ORDERED: ONDANSETRON HCL INJ 2MG/ML 2ML 2 MG/ML VIAL IV PRN (18:30)
[2023-05-03] MEDS: SODIUM CHLORIDE 0.9% 1000ML 1,000 ML IV SCH (19:22)
[2023-05-03 21:26] VITALS: BP 160/62; PULSE 67; RESP 20; TEMP 97.5; O2SAT 98
[2023-05-03 21:43] VITALS: BP 160/62; PULSE 70; RESP 20; TEMP 97.5; O2SAT 98
[2023-05-03 22:06] VITALS: BP 160/62; PULSE 70; RESP 20; TEMP 97.5; O2SAT 98
[2023-05-04] VITALS (8 sets, daily range): BP systolic 124–188; BP diastolic 47–80; PULSE 66–99; RESP 15–19; TEMP 97–99.7; O2SAT 98–100
[2023-05-04] MEDS ORDERED: METRONIDAZOLE 500MG/NS 100ML 100 ML IV ONE (00:45)
[2023-05-04] MEDS: METRONIDAZOLE 500MG/NS 100ML 100 ML IV SCH ×3 (06:04→21:19)
[2023-05-04] MEDS: SODIUM CHLORIDE 0.9% 1000ML 1,000 ML IV SCH (06:05)
[2023-05-04 06:08] LABS: BASOPHILS % 0.1 % (0.0-1.0); HEMATOCRIT 26.9 % (34.2-44.1); HEMOGLOBIN 8.5 g/dL (12.0-16.0); LYMPHOCYTES # (AUTO) 0.8 (1.0-3.2); LYMPHOCYTES % 5.4 % (18.0-39.1); MEAN CORPUSCULAR HEMOGLOBIN 27.2 pg (28-32); MEAN CORPUSCULAR HGB CONC 31.6 g/dL (31-35); MEAN CORPUSCULAR VOLUME 86.2 fL (81-99); MONOCYTES # (AUTO) 0.9 (0.2-0.8); MONOCYTES % 6.5 % (4.4-11.3); NEUTROPHILS # (AUTO) 12.3 (2.1-6.9); NEUTROPHILS % 87.7 % (38.7-80.0); PLATELET COUNT 217 x10e3/uL (140-360); RED BLOOD COUNT 3.12 x10e6/uL (3.6-5.1)
[2023-05-04 06:41] LABS: ALBUMIN 2.5 g/dL (3.5-5.0); ANION GAP 13.2 mmol/L (8-16); CREATININE, SERUM 1.81 mg/dL (0.57-1.11); POTASSIUM 4.2 mmol/L (3.5-5.1)
[2023-05-04 07:05] LABS: CALCIUM 7.9 mg/dL (8.4-10.2)
[2023-05-04] MEDS ORDERED: DEXTROSE 50% SYRINGE 50 ML IV PRN (07:45)
[2023-05-04] MEDS: HEPARIN SOD (PORCINE) 5,000 UNIT/ML VIAL SC SCH ×2 (09:01→21:21)
[2023-05-04] MEDS: INSULIN LISPRO 100 UNIT/1 ML 3ML VIAL SQ SCH ×4 (09:01→21:00)
[2023-05-04] MEDS: SODIUM BICARBONATE 8.4% 50 ML in SODIUM CHLORIDE 0.9% 1000ML 1,000 ML IV SCH ×2 (12:34→21:20)
[2023-05-04] MEDS: HYDRALAZINE HCL 20 MG/ML VIAL IV PRN (21:20)
[2023-05-04] MEDS ORDERED: OCTREOTIDE ACETATE 0.05 MG/ML AMP IV STA (23:38)
[2023-05-04] MEDS ORDERED: OCTREOTIDE ACETATE 600 MCG in SODIUM CHLORIDE 0.9% 250ML 300 ML IV SCH (23:45)
[2023-05-05] VITALS (29 sets, daily range): BP systolic 133–173; BP diastolic 55–147; PULSE 67–123; RESP 13–24; TEMP 98.4–100.2; O2SAT 96–99
[2023-05-05] MEDS ORDERED: SODIUM CHLORIDE 0.9% 250ML 250 ML ONE ×2 (00:27→08:50)
[2023-05-05] MEDS ORDERED: OCTREOTIDE ACETATE 0.05 MG/ML AMP ONE (00:46)
[2023-05-05] MEDS: METOCLOPRAMIDE HCL 10 MG/2ML VIAL IV SCH ×4 (01:12→16:14)
[2023-05-05 03:08] LABS: BASOPHILS % 0.2 % (0.0-1.0); HEMATOCRIT 31.1 % (34.2-44.1); HEMOGLOBIN 10.1 g/dL (12.0-16.0); LYMPHOCYTES # (AUTO) 0.6 (1.0-3.2); MEAN CORPUSCULAR HEMOGLOBIN 27.4 pg (28-32); MEAN CORPUSCULAR HGB CONC 32.5 g/dL (31-35); MEAN CORPUSCULAR VOLUME 84.5 fL (81-99); MONOCYTES # (AUTO) 0.8 (0.2-0.8); MONOCYTES % 4.1 % (4.4-11.3); NEUTROPHILS # (AUTO) 17.2 (2.1-6.9); NEUTROPHILS % 92.1 % (38.7-80.0); PLATELET COUNT 258 x10e3/uL (140-360); RED BLOOD COUNT 3.68 x10e6/uL (3.6-5.1); RED CELL DISTRIBUTION WIDTH 14.3 % (11.7-14.4)
[2023-05-05 03:20] LABS: INR 1.05; PROTHROMBIN TIME 14.2 seconds (11.9-14.5)
[2023-05-05 05:19] LABS: BASOPHILS % 0.1 % (0.0-1.0); HEMATOCRIT 29.2 % (34.2-44.1); HEMOGLOBIN 9.4 g/dL (12.0-16.0); LYMPHOCYTES # (AUTO) 0.6 (1.0-3.2); LYMPHOCYTES % 3.3 % (18.0-39.1); MEAN CORPUSCULAR HEMOGLOBIN 27.4 pg (28-32); MEAN CORPUSCULAR HGB CONC 32.2 g/dL (31-35); MEAN CORPUSCULAR VOLUME 85.1 fL (81-99); MONOCYTES # (AUTO) 0.7 (0.2-0.8); MONOCYTES % 4.3 % (4.4-11.3); NEUTROPHILS # (AUTO) 15.2 (2.1-6.9); NEUTROPHILS % 91.9 % (38.7-80.0); PLATELET COUNT 241 x10e3/uL (140-360); RED BLOOD COUNT 3.43 x10e6/uL (3.6-5.1); RED CELL DISTRIBUTION WIDTH 14.6 % (11.7-14.4)
[2023-05-05 05:43] LABS: ALBUMIN 2.5 g/dL (3.5-5.0); ALBUMIN/GLOBULIN RATIO 0.8 (0.8-2.0); ANION GAP 18.1 mmol/L (8-16); CALCIUM 8.2 mg/dL (8.4-10.2); CREATININE, SERUM 1.37 mg/dL (0.57-1.11); POTASSIUM 3.1 mmol/L (3.5-5.1)
[2023-05-05 06:02] LABS: % IRON SATURATION 7 % (15-50); IRON 19 ug/dL (50-170); TOTAL IRON BINDING CAPACITY 263 ug/dL (261-478); TRANSFERRIN 188 mg/dL (180-382)
[2023-05-05] MEDS: METRONIDAZOLE 500MG/NS 100ML 100 ML IV SCH ×3 (06:30→22:52)
[2023-05-05] MEDS: HYDRALAZINE HCL 20 MG/ML VIAL IV PRN ×2 (07:04→20:18)
[2023-05-05] MEDS: INSULIN LISPRO 100 UNIT/1 ML 3ML VIAL SQ SCH ×3 (07:30→16:15)
[2023-05-05] MEDS: OCTREOTIDE ACETATE 500 MCG in SODIUM CHLORIDE 0.9% 250ML 249 ML IV SCH ×2 (09:11→20:10)
[2023-05-05] MEDS: SODIUM BICARBONATE 8.4% 50 ML in SODIUM CHLORIDE 0.9% 1000ML 1,000 ML IV SCH (09:11)
[2023-05-05] MEDS: HEPARIN SOD (PORCINE) 5,000 UNIT/ML VIAL SC SCH ×2 (09:13→20:24)
[2023-05-05] MEDS: SODIUM BICARBONATE 8.4% 50 ML in SODIUM CHLORIDE 0.45% 1,000 ML IV SCH (14:12)
[2023-05-05] MEDS ORDERED: AMIODARONE HCL 150 MG in DEXTROSE 5% 100ML 100 ML IV SCH (18:30)
[2023-05-05] MEDS ORDERED: AMIODARONE HCL 150 MG/100 ML BAG IV ONE (18:30)
[2023-05-05 19:39] LABS: ALBUMIN 2.5 g/dL (3.5-5.0); ALBUMIN/GLOBULIN RATIO 0.8 (0.8-2.0); ANION GAP 13.7 mmol/L (8-16); CALCIUM 8.3 mg/dL (8.4-10.2); CREATININE, SERUM 1.25 mg/dL (0.57-1.11)
[2023-05-05 19:42] LABS: POTASSIUM 2.7 mmol/L (3.5-5.1)
[2023-05-05] MEDS: AMIODARONE 900MG 500 ML IV SCH (19:47)
[2023-05-05 19:50] LABS: MAGNESIUM 1.5 MG/DL (1.3-2.1)
[2023-05-05 20:10] LABS: THYROID STIMULATING HORMONE 0.058 uIU/mL (0.350-4.940)
[2023-05-05] MEDS: POTASSIUM CHLORIDE 20MEQ/100ML 100 ML IV SCH ×2 (20:15→22:55)
[2023-05-05] MEDS ORDERED: ACETAMINOPHEN 325 MG TAB PO PRN (21:15)
[2023-05-05 21:47] LABS: BASOPHILS % 0.2 % (0.0-1.0); HEMATOCRIT 27.8 % (34.2-44.1); HEMOGLOBIN 8.7 g/dL (12.0-16.0); LYMPHOCYTES # (AUTO) 1.2 (1.0-3.2); LYMPHOCYTES % 6.8 % (18.0-39.1); MEAN CORPUSCULAR HEMOGLOBIN 27.4 pg (28-32); MEAN CORPUSCULAR HGB CONC 31.3 g/dL (31-35); MEAN CORPUSCULAR VOLUME 87.4 fL (81-99); NEUTROPHILS # (AUTO) 14.7 (2.1-6.9); NEUTROPHILS % 86.2 % (38.7-80.0); PLATELET COUNT 245 x10e3/uL (140-360); RED BLOOD COUNT 3.18 x10e6/uL (3.6-5.1); RED CELL DISTRIBUTION WIDTH 14.6 % (11.7-14.4)
[2023-05-05] MEDS ORDERED: POTASSIUM CHLORIDE 20 MEQ TAB CR PO STA (22:38)
[2023-05-05] MEDS ORDERED: MELATONIN 3 MG TAB PO PRN (22:45)
[2023-05-05] MEDS ORDERED: MAGNESIUM/ALUMINUM/SIMETHICONE 30 ML UDC PO PRN (22:45)
[2023-05-05] MEDS ORDERED: GUAIFENESIN/DEXTROMETHORPHAN LIQD 5 ML UDC PO PRN (22:45)
[2023-05-05] MEDS ORDERED: DEXTROSE 50% SYRINGE 50 ML IV PRN (22:45)
[2023-05-06] VITALS (74 sets, daily range): BP systolic 111–177; BP diastolic 62–128; PULSE 59–159; RESP 13–33; TEMP 98.4–100.6; O2SAT 86–99
[2023-05-06] MEDS: METOCLOPRAMIDE HCL 10 MG/2ML VIAL IV SCH ×5 (00:07→23:53)
[2023-05-06] MEDS: OCTREOTIDE ACETATE 500 MCG in SODIUM CHLORIDE 0.9% 250ML 249 ML IV SCH ×3 (00:10→23:53)
[2023-05-06] MEDS ORDERED: SODIUM CHLORIDE 0.9% 250ML 250 ML ONE (01:04)
[2023-05-06 01:32] LABS: WBC,FECAL (FECAL LACTOFERRIN) POSITIVE (NEGATIVE)
[2023-05-06] MEDS ORDERED: CYANOCOBALAMIN INJ 1,000 MCG/ML VIAL IM ONE (02:00)
[2023-05-06] MEDS: SODIUM BICARBONATE 8.4% 50 ML in SODIUM CHLORIDE 0.45% 1,000 ML IV SCH ×2 (03:55→19:15)
[2023-05-06 04:24] LABS: BASOPHILS # (AUTO) 0.1 (0.0-0.1); BASOPHILS % 0.2 % (0.0-1.0); HEMATOCRIT 28.8 % (34.2-44.1); HEMOGLOBIN 8.9 g/dL (12.0-16.0); LYMPHOCYTES # (AUTO) 0.6 (1.0-3.2); LYMPHOCYTES % 2.7 % (18.0-39.1); MEAN CORPUSCULAR HEMOGLOBIN 27.1 pg (28-32); MEAN CORPUSCULAR HGB CONC 30.9 g/dL (31-35); MEAN CORPUSCULAR VOLUME 87.8 fL (81-99); MONOCYTES # (AUTO) 0.9 (0.2-0.8); MONOCYTES % 4.5 % (4.4-11.3); NEUTROPHILS # (AUTO) 18.8 (2.1-6.9); NEUTROPHILS % 91.5 % (38.7-80.0); PLATELET COUNT 271 x10e3/uL (140-360); RED BLOOD COUNT 3.28 x10e6/uL (3.6-5.1); RED CELL DISTRIBUTION WIDTH 14.5 % (11.7-14.4)
[2023-05-06 04:44] LABS: ALBUMIN 2.7 g/dL (3.5-5.0); ALBUMIN/GLOBULIN RATIO 0.8 (0.8-2.0); ANION GAP 17.3 mmol/L (8-16); CALCIUM 8.5 mg/dL (8.4-10.2); CREATININE, SERUM 1.14 mg/dL (0.57-1.11); POTASSIUM 3.3 mmol/L (3.5-5.1)
[2023-05-06 05:07] LABS: FREE THYROXINE INDEX 3.1528 (1.4-3.8); THYROID STIMULATING HORMONE 0.058 uIU/mL (0.350-4.940)
[2023-05-06] MEDS: METRONIDAZOLE 500MG/NS 100ML 100 ML IV SCH ×3 (06:17→21:12)
[2023-05-06] MEDS: METOPROLOL TARTRATE INJ 1 MG/ML VIAL IV SCH ×4 (06:31→23:54)
[2023-05-06] MEDS: INSULIN REGULAR, HUMAN 100 UNIT/1 ML SQ SCH ×4 (07:55→21:18)
[2023-05-06] MEDS ORDERED: ATENOLOL 50 MG TAB PO SCH (09:00)
[2023-05-06] MEDS ORDERED: LISINOPRIL 20 MG TAB PO SCH (09:00)
[2023-05-06] MEDS ORDERED: AMLODIPINE BESYLATE 5 MG TAB PO SCH (09:00)
[2023-05-06] MEDS: CYANOCOBALAMIN INJ 1,000 MCG/ML VIAL IM SCH (10:24)
[2023-05-06] MEDS: HEPARIN SOD (PORCINE) 5,000 UNIT/ML VIAL SC SCH ×2 (10:25→21:19)
[2023-05-06] MEDS: FOLIC ACID 1 MG TAB PO SCH (10:25)
[2023-05-06] MEDS: MULTIVITAMINS/MINERALS TAB PO SCH (10:25)
[2023-05-06] MEDS: IRON SUCROSE 100 MG in SODIUM CHLORIDE 0.9% 100 ML IV SCH (13:29)
[2023-05-06] MEDS: BALSAM PERU/CASTOR OIL 60 GM OINT...G. TP SCH (13:32)
[2023-05-06] MEDS: AMIODARONE 900MG 500 ML IV SCH (20:10)
[2023-05-07] VITALS (36 sets, daily range): BP systolic 107–143; BP diastolic 52–99; PULSE 38–117; RESP 20–28; TEMP 97.6–98.3; O2SAT 88–99
[2023-05-07] MEDS: METRONIDAZOLE 500MG/NS 100ML 100 ML IV SCH ×3 (05:36→22:11)
[2023-05-07] MEDS: METOCLOPRAMIDE HCL 10 MG/2ML VIAL IV SCH ×3 (05:36→17:39)
[2023-05-07] MEDS: METOPROLOL TARTRATE INJ 1 MG/ML VIAL IV SCH ×3 (05:37→17:39)
[2023-05-07] MEDS: INSULIN REGULAR, HUMAN 100 UNIT/1 ML SQ SCH ×4 (07:52→21:00)
[2023-05-07 08:08] LABS: BASOPHILS % 0.1 % (0.0-1.0); EOSINOPHILS % 0.1 % (0.0-6.0); HEMATOCRIT 30.7 % (34.2-44.1); HEMOGLOBIN 9.8 g/dL (12.0-16.0); LYMPHOCYTES # (AUTO) 1.2 (1.0-3.2); LYMPHOCYTES % 5.7 % (18.0-39.1); MEAN CORPUSCULAR HEMOGLOBIN 27.3 pg (28-32); MEAN CORPUSCULAR HGB CONC 31.9 g/dL (31-35); MEAN CORPUSCULAR VOLUME 85.5 fL (81-99); MONOCYTES # (AUTO) 1.1 (0.2-0.8); MONOCYTES % 5.2 % (4.4-11.3); NEUTROPHILS # (AUTO) 19.2 (2.1-6.9); NEUTROPHILS % 87.8 % (38.7-80.0); PLATELET COUNT 282 x10e3/uL (140-360); RED BLOOD COUNT 3.59 x10e6/uL (3.6-5.1); RED CELL DISTRIBUTION WIDTH 14.6 % (11.7-14.4)
[2023-05-07 08:36] LABS: ALBUMIN 2.3 g/dL (3.5-5.0); ALBUMIN/GLOBULIN RATIO 0.8 (0.8-2.0); ANION GAP 15.1 mmol/L (8-16); CALCIUM 7.9 mg/dL (8.4-10.2); CREATININE, SERUM 1.42 mg/dL (0.57-1.11); POTASSIUM 3.1 mmol/L (3.5-5.1)
[2023-05-07] MEDS: MULTIVITAMINS/MINERALS TAB PO SCH (09:00)
[2023-05-07] MEDS: FOLIC ACID 1 MG TAB PO SCH (09:00)
[2023-05-07] MEDS: VANCOMYCIN 250MG/5ML ORAL SOLN PO SCH ×3 (09:15→17:53)
[2023-05-07] MEDS: CYANOCOBALAMIN INJ 1,000 MCG/ML VIAL IM SCH (09:29)
[2023-05-07] MEDS: SODIUM BICARBONATE 8.4% 50 ML in SODIUM CHLORIDE 0.45% 1,000 ML IV SCH (09:29)
[2023-05-07] MEDS: IRON SUCROSE 100 MG in SODIUM CHLORIDE 0.9% 100 ML IV SCH (09:29)
[2023-05-07] MEDS: HEPARIN SOD (PORCINE) 5,000 UNIT/ML VIAL SC SCH ×2 (09:29→20:59)
[2023-05-07] MEDS ORDERED: POTASSIUM CHLORIDE 20MEQ/100ML 100 ML IV ONE ×2 (09:30→13:15)
[2023-05-07] MEDS: OCTREOTIDE ACETATE 500 MCG in SODIUM CHLORIDE 0.9% 250ML 249 ML IV SCH ×2 (09:34→21:00)
[2023-05-07] MEDS: BALSAM PERU/CASTOR OIL 60 GM OINT...G. TP SCH (09:47)
[2023-05-07] MEDS: LACTATED RINGER'S 1,000 ML INJ SCH (13:16)
[2023-05-07] MEDS ORDERED: POTASSIUM CHLORIDE 20 MEQ TAB CR PO ONE (13:30)
[2023-05-07] MEDS ORDERED: FUROSEMIDE INJ 10 MG/ML 4 ML VIAL IV ONE (18:20)
[2023-05-07] MEDS ORDERED: CEFEPIME HCL 1 GM VIAL ONE (20:50)
[2023-05-07] MEDS ORDERED: SODIUM CHLORIDE 0.9% 250ML 250 ML ONE (20:57)
[2023-05-07] MEDS: MUPIROCIN 2% OINT 22 GM TUBE TOP SCH (21:00)
[2023-05-08] VITALS (24 sets, daily range): BP systolic 98–128; BP diastolic 48–84; PULSE 70–120; RESP 20–29; TEMP 97.6–98.6; O2SAT 94–100
[2023-05-08] MEDS: METOCLOPRAMIDE HCL 10 MG/2ML VIAL IV SCH ×4 (00:07→18:18)
[2023-05-08] MEDS: LACTATED RINGER'S 1,000 ML INJ SCH (01:46)
[2023-05-08] MEDS: METRONIDAZOLE 500MG/NS 100ML 100 ML IV SCH ×3 (05:39→21:22)
[2023-05-08] MEDS: METOPROLOL TARTRATE INJ 1 MG/ML VIAL IV SCH ×2 (05:46)
[2023-05-08] MEDS: VANCOMYCIN 250MG/5ML ORAL SOLN PO SCH ×4 (05:47→18:18)
[2023-05-08 06:39] LABS: BASOPHILS # (AUTO) 0.1 (0.0-0.1); BASOPHILS % 0.3 % (0.0-1.0); EOSINOPHILS # (AUTO) 0.1 (0.0-0.4); EOSINOPHILS % 0.6 % (0.0-6.0); HEMATOCRIT 25.7 % (34.2-44.1); HEMOGLOBIN 7.8 g/dL (12.0-16.0); LYMPHOCYTES # (AUTO) 0.6 (1.0-3.2); LYMPHOCYTES % 3.1 % (18.0-39.1); MEAN CORPUSCULAR HEMOGLOBIN 27.3 pg (28-32); MEAN CORPUSCULAR HGB CONC 30.4 g/dL (31-35); MONOCYTES # (AUTO) 1.1 (0.2-0.8); MONOCYTES % 5.9 % (4.4-11.3); NEUTROPHILS # (AUTO) 16.5 (2.1-6.9); NEUTROPHILS % 87.7 % (38.7-80.0); PLATELET COUNT 234 x10e3/uL (140-360); RED BLOOD COUNT 2.86 x10e6/uL (3.6-5.1); RED CELL DISTRIBUTION WIDTH 14.9 % (11.7-14.4)
[2023-05-08 06:45] LABS: MEAN CORPUSCULAR VOLUME 89.9 fL (81-99)
[2023-05-08 06:58] LABS: ALBUMIN 1.8 g/dL (3.5-5.0); ALBUMIN/GLOBULIN RATIO 0.8 (0.8-2.0); CREATININE, SERUM 1.4 mg/dL (0.57-1.11)
[2023-05-08] MEDS: OCTREOTIDE ACETATE 500 MCG in SODIUM CHLORIDE 0.9% 250ML 249 ML IV SCH ×2 (07:39→16:44)
[2023-05-08] MEDS: INSULIN REGULAR, HUMAN 100 UNIT/1 ML SQ SCH ×4 (07:55→20:28)
[2023-05-08] MEDS: CYANOCOBALAMIN INJ 1,000 MCG/ML VIAL IM SCH (09:11)
[2023-05-08] MEDS: HEPARIN SOD (PORCINE) 5,000 UNIT/ML VIAL SC SCH ×2 (09:11→20:27)
[2023-05-08] MEDS: IRON SUCROSE 100 MG in SODIUM CHLORIDE 0.9% 100 ML IV SCH (09:35)
[2023-05-08] MEDS: MUPIROCIN 2% OINT 22 GM TUBE TOP SCH ×2 (09:36→20:22)
[2023-05-08] MEDS: BALSAM PERU/CASTOR OIL 60 GM OINT...G. TP SCH (09:36)
[2023-05-08 09:44] LABS: ABG HCO3 17 mmol/L (22-26); ABG PCO2 26 mmHg (35-45); ABG PH 7.42 (7.35-7.45); ABG PO2 180 mmHg (80-105); ABG TCO2 17
[2023-05-08] MEDS: MULTIVITAMINS/MINERALS TAB PO SCH (10:47)
[2023-05-08] MEDS: FOLIC ACID 1 MG TAB PO SCH (10:47)
[2023-05-08] MEDS: FUROSEMIDE 20 MG TAB PO SCH ×2 (11:59→18:19)
[2023-05-08] MEDS: METOPROLOL TARTRATE 25 MG TAB PO SCH ×2 (11:59→20:22)
[2023-05-08] MEDS ORDERED: LACTATED RINGER'S 1,000 ML INJ ONE (18:15)
[2023-05-08] MEDS: POTASSIUM CHLORIDE 20MEQ/100ML 100 ML IV SCH ×2 (18:33→19:35)
[2023-05-09] VITALS (30 sets, daily range): BP systolic 94–138; BP diastolic 46–98; PULSE 69–114; RESP 18–29; TEMP 97.8–99.2; O2SAT 90–98
[2023-05-09] MEDS: METOCLOPRAMIDE HCL 10 MG/2ML VIAL IV SCH ×5 (02:33→23:36)
[2023-05-09] MEDS: VANCOMYCIN 250MG/5ML ORAL SOLN PO SCH ×5 (02:34→23:36)
[2023-05-09] MEDS: OCTREOTIDE ACETATE 500 MCG in SODIUM CHLORIDE 0.9% 250ML 249 ML IV SCH ×3 (02:45→22:59)
[2023-05-09] MEDS: FUROSEMIDE 20 MG TAB PO SCH ×2 (05:26→17:54)
[2023-05-09] MEDS: METRONIDAZOLE 500MG/NS 100ML 100 ML IV SCH ×3 (05:26→21:37)
[2023-05-09 06:47] LABS: BASOPHILS # (AUTO) 0.1 (0.0-0.1); BASOPHILS % 0.3 % (0.0-1.0); EOSINOPHILS % 0.2 % (0.0-6.0); HEMATOCRIT 26.8 % (34.2-44.1); HEMOGLOBIN 8.5 g/dL (12.0-16.0); LYMPHOCYTES # (AUTO) 1.3 (1.0-3.2); LYMPHOCYTES % 6.2 % (18.0-39.1); MEAN CORPUSCULAR HEMOGLOBIN 27.5 pg (28-32); MEAN CORPUSCULAR HGB CONC 31.7 g/dL (31-35); MONOCYTES # (AUTO) 1.3 (0.2-0.8); MONOCYTES % 5.9 % (4.4-11.3); NEUTROPHILS # (AUTO) 17.5 (2.1-6.9); NEUTROPHILS % 82.9 % (38.7-80.0); PLATELET COUNT 281 x10e3/uL (140-360); RED BLOOD COUNT 3.09 x10e6/uL (3.6-5.1); RED CELL DISTRIBUTION WIDTH 15.2 % (11.7-14.4)
[2023-05-09 06:51] LABS: MEAN CORPUSCULAR VOLUME 86.7 fL (81-99)
[2023-05-09 07:39] LABS: ALBUMIN/GLOBULIN RATIO 0.7 (0.8-2.0); ANION GAP 14.4 mmol/L (8-16); CALCIUM 7.6 mg/dL (8.4-10.2); CREATININE, SERUM 1.68 mg/dL (0.57-1.11); POTASSIUM 3.4 mmol/L (3.5-5.1)
[2023-05-09 07:57] LABS: LYMPHOCYTES % (MANUAL) 10 % (19-48); MONOCYTES % (MANUAL) 5 % (3.4-9.0); NEUTROPHILS % (MANUAL) 85 % (40-74); NUCLEATED RED BLOOD CELLS 11
[2023-05-09 07:58] LABS: HYPOCHROMASIA SLIGHT; PLATELET ESTIMATE ADEQUATE; PLATELET MORPHOLOGY COMMENT NORMAL; POLYCHROMASIA FEW; RBC MORPHOLOGY COMMENT NORMAL
[2023-05-09] MEDS ORDERED: POTASSIUM CHLORIDE 20 MEQ TAB CR PO SCH (09:00)
[2023-05-09] MEDS: CYANOCOBALAMIN INJ 1,000 MCG/ML VIAL IM SCH (09:11)
[2023-05-09] MEDS: MULTIVITAMINS/MINERALS TAB PO SCH (09:16)
[2023-05-09] MEDS: IRON SUCROSE 100 MG in SODIUM CHLORIDE 0.9% 100 ML IV SCH (09:16)
[2023-05-09] MEDS: FOLIC ACID 1 MG TAB PO SCH (09:16)
[2023-05-09] MEDS: MUPIROCIN 2% OINT 22 GM TUBE TOP SCH ×2 (09:17→20:42)
[2023-05-09] MEDS: BALSAM PERU/CASTOR OIL 60 GM OINT...G. TP SCH (09:17)
[2023-05-09] MEDS: METOPROLOL TARTRATE 25 MG TAB PO SCH ×2 (09:18→20:34)
[2023-05-09] MEDS: INSULIN REGULAR, HUMAN 100 UNIT/1 ML SQ SCH ×4 (09:32→20:46)
[2023-05-09] MEDS: HEPARIN SOD (PORCINE) 5,000 UNIT/ML VIAL SC SCH ×2 (09:32→20:46)
[2023-05-09] MEDS ORDERED: POTASSIUM CHLORIDE 20MEQ/100ML 100 ML IV ONE (12:15)
[2023-05-09] MEDS ORDERED: SODIUM CHLORIDE 0.9% 250ML 0 ML ONE (12:40)
[2023-05-10] VITALS (58 sets, daily range): BP systolic 85–124; BP diastolic 44–94; PULSE 45–125; RESP 4–29; TEMP 97.8–99.3; O2SAT 95–100
[2023-05-10] MEDS: VANCOMYCIN 250MG/5ML ORAL SOLN PO SCH ×3 (05:59→18:37)
[2023-05-10] MEDS: FUROSEMIDE 20 MG TAB PO SCH (05:59)
[2023-05-10] MEDS: METRONIDAZOLE 500MG/NS 100ML 100 ML IV SCH ×3 (05:59→22:29)
[2023-05-10] MEDS: METOCLOPRAMIDE HCL 10 MG/2ML VIAL IV SCH ×3 (05:59→18:37)
[2023-05-10 06:43] LABS: BASOPHILS # (AUTO) 0.1 (0.0-0.1); BASOPHILS % 0.4 % (0.0-1.0); HEMATOCRIT 28.7 % (34.2-44.1); LYMPHOCYTES # (AUTO) 1.6 (1.0-3.2); LYMPHOCYTES % 7.7 % (18.0-39.1); MEAN CORPUSCULAR HEMOGLOBIN 27.7 pg (28-32); MEAN CORPUSCULAR HGB CONC 31.4 g/dL (31-35); MEAN CORPUSCULAR VOLUME 88.3 fL (81-99); MONOCYTES # (AUTO) 1.4 (0.2-0.8); MONOCYTES % 6.6 % (4.4-11.3); NEUTROPHILS # (AUTO) 16.6 (2.1-6.9); NEUTROPHILS % 78.6 % (38.7-80.0); PLATELET COUNT 291 x10e3/uL (140-360); RED BLOOD COUNT 3.25 x10e6/uL (3.6-5.1); RED CELL DISTRIBUTION WIDTH 15.9 % (11.7-14.4)
[2023-05-10 06:54] LABS: ALBUMIN 1.9 g/dL (3.5-5.0); ALBUMIN/GLOBULIN RATIO 0.7 (0.8-2.0); CALCIUM 7.8 mg/dL (8.4-10.2); CREATININE, SERUM 1.72 mg/dL (0.57-1.11)
[2023-05-10] MEDS ORDERED: AMIODARONE 900MG 900 MG in Premix Bag 1 BAG IV ONE (08:45)
[2023-05-10] MEDS: CYANOCOBALAMIN INJ 1,000 MCG/ML VIAL IM SCH (08:59)
[2023-05-10] MEDS: METOPROLOL TARTRATE 25 MG TAB PO SCH ×2 (09:00→21:00)
[2023-05-10] MEDS ORDERED: AMIODARONE 900MG 500 ML IV ONE (09:00)
[2023-05-10] MEDS: FOLIC ACID 1 MG TAB PO SCH (09:02)
[2023-05-10] MEDS: HEPARIN SOD (PORCINE) 5,000 UNIT/ML VIAL SC SCH ×2 (09:02→21:25)
[2023-05-10] MEDS: INSULIN REGULAR, HUMAN 100 UNIT/1 ML SQ SCH ×4 (09:21→21:26)
[2023-05-10] MEDS: OCTREOTIDE ACETATE 500 MCG in SODIUM CHLORIDE 0.9% 250ML 249 ML IV SCH ×2 (09:22→19:47)
[2023-05-10] MEDS: MUPIROCIN 2% OINT 22 GM TUBE TOP SCH ×2 (09:28→21:26)
[2023-05-10] MEDS: BALSAM PERU/CASTOR OIL 60 GM OINT...G. TP SCH (09:28)
[2023-05-10] MEDS: MULTIVITAMINS/MINERALS TAB PO SCH (09:59)
[2023-05-10] MEDS: IRON SUCROSE 100 MG in SODIUM CHLORIDE 0.9% 100 ML IV SCH (09:59)
[2023-05-10 10:38] LABS: LYMPHOCYTES % (MANUAL) 2 % (19-48); MONOCYTES % (MANUAL) 1 % (3.4-9.0); NEUTROPHILS % (MANUAL) 97 % (40-74); NUCLEATED RED BLOOD CELLS 3; PLATELET ESTIMATE ADEQUATE; PLATELET MORPHOLOGY COMMENT NORMAL; RBC MORPHOLOGY COMMENT NORMAL
[2023-05-10] MEDS: KCL 20 MEQ PACKET/ ORAL SOLN NG SCH (11:21)
[2023-05-10 12:08] LABS: BODY FLUID APPEARANCE CLOUDY; BODY FLUID COLOR YELLOW; BODY FLUID TYPE PLEURAL; WBC,BODY FLUID 64 cells/uL
[2023-05-10 12:09] LABS: RBC,BODY FLUID 0 cells/uL
[2023-05-10 13:13] LABS: LYMPHOCYTES,BODY FLUID 23 %; MONO/MACROPHG,BODY FLUID 63 %; NEUTROPHILS,BODY FLUID 14 %
[2023-05-11] VITALS (52 sets, daily range): BP systolic 92–128; BP diastolic 47–89; PULSE 34–126; RESP 0–34; TEMP 99.3; O2SAT 96–100
[2023-05-11] MEDS: METOCLOPRAMIDE HCL 10 MG/2ML VIAL IV SCH ×5 (00:55→23:54)
[2023-05-11] MEDS: VANCOMYCIN 250MG/5ML ORAL SOLN PO SCH ×5 (00:55→23:54)
[2023-05-11] MEDS: OCTREOTIDE ACETATE 500 MCG in SODIUM CHLORIDE 0.9% 250ML 249 ML IV SCH ×3 (05:08→23:53)
[2023-05-11] MEDS: METRONIDAZOLE 500MG/NS 100ML 100 ML IV SCH ×3 (05:09→21:04)
[2023-05-11 06:49] LABS: BASOPHILS # (AUTO) 0.1 (0.0-0.1); BASOPHILS % 0.6 % (0.0-1.0); EOSINOPHILS % 0.2 % (0.0-6.0); HEMATOCRIT 28.3 % (34.2-44.1); HEMOGLOBIN 8.9 g/dL (12.0-16.0); LYMPHOCYTES # (AUTO) 1.9 (1.0-3.2); LYMPHOCYTES % 9.7 % (18.0-39.1); MEAN CORPUSCULAR HEMOGLOBIN 27.9 pg (28-32); MEAN CORPUSCULAR HGB CONC 31.4 g/dL (31-35); MEAN CORPUSCULAR VOLUME 88.7 fL (81-99); MONOCYTES # (AUTO) 1.7 (0.2-0.8); MONOCYTES % 8.7 % (4.4-11.3); NEUTROPHILS # (AUTO) 13.5 (2.1-6.9); NEUTROPHILS % 70.3 % (38.7-80.0); PLATELET COUNT 283 x10e3/uL (140-360); RED BLOOD COUNT 3.19 x10e6/uL (3.6-5.1); RED CELL DISTRIBUTION WIDTH 17.8 % (11.7-14.4)
[2023-05-11 07:05] LABS: ALBUMIN 1.9 g/dL (3.5-5.0); ALBUMIN/GLOBULIN RATIO 0.7 (0.8-2.0); ANION GAP 12.8 mmol/L (8-16); CALCIUM 7.5 mg/dL (8.4-10.2); CREATININE, SERUM 1.68 mg/dL (0.57-1.11); POTASSIUM 3.8 mmol/L (3.5-5.1)
[2023-05-11] MEDS: INSULIN REGULAR, HUMAN 100 UNIT/1 ML SQ SCH ×4 (08:54→20:55)
[2023-05-11] MEDS: HEPARIN SOD (PORCINE) 5,000 UNIT/ML VIAL SC SCH (08:55)
[2023-05-11] MEDS: CYANOCOBALAMIN INJ 1,000 MCG/ML VIAL IM SCH (08:55)
[2023-05-11] MEDS: BALSAM PERU/CASTOR OIL 60 GM OINT...G. TP SCH (08:56)
[2023-05-11] MEDS: MULTIVITAMINS/MINERALS TAB PO SCH (08:56)
[2023-05-11] MEDS: MUPIROCIN 2% OINT 22 GM TUBE TOP SCH ×2 (08:56→20:56)
[2023-05-11] MEDS: FOLIC ACID 1 MG TAB PO SCH (08:56)
[2023-05-11] MEDS: KCL 20 MEQ PACKET/ ORAL SOLN NG SCH (08:56)
[2023-05-11] MEDS: METOPROLOL TARTRATE 25 MG TAB PO SCH ×2 (08:57→20:57)
[2023-05-11] MEDS: SODIUM BICARBONATE 650 MG TAB PO SCH (18:00)
[2023-05-12] VITALS (33 sets, daily range): BP systolic 93–119; BP diastolic 41–66; PULSE 64–120; RESP 0–29; TEMP 99.6–99.8; O2SAT 95–100
[2023-05-12] MEDS: METOCLOPRAMIDE HCL 10 MG/2ML VIAL IV SCH ×3 (05:39→17:36)
[2023-05-12] MEDS: VANCOMYCIN 250MG/5ML ORAL SOLN PO SCH ×3 (05:39→17:36)
[2023-05-12] MEDS: METRONIDAZOLE 500MG/NS 100ML 100 ML IV SCH ×3 (05:39→22:39)
[2023-05-12 06:29] LABS: BASOPHILS # (AUTO) 0.1 (0.0-0.1); BASOPHILS % 0.5 % (0.0-1.0); EOSINOPHILS # (AUTO) 0.1 (0.0-0.4); EOSINOPHILS % 0.3 % (0.0-6.0); HEMATOCRIT 28.5 % (34.2-44.1); HEMOGLOBIN 8.9 g/dL (12.0-16.0); LYMPHOCYTES # (AUTO) 1.9 (1.0-3.2); LYMPHOCYTES % 8.8 % (18.0-39.1); MEAN CORPUSCULAR HEMOGLOBIN 28.1 pg (28-32); MEAN CORPUSCULAR HGB CONC 31.2 g/dL (31-35); MEAN CORPUSCULAR VOLUME 89.9 fL (81-99); MONOCYTES # (AUTO) 1.5 (0.2-0.8); MONOCYTES % 7.1 % (4.4-11.3); NEUTROPHILS # (AUTO) 15.6 (2.1-6.9); NEUTROPHILS % 73.8 % (38.7-80.0); PLATELET COUNT 260 x10e3/uL (140-360); RED BLOOD COUNT 3.17 x10e6/uL (3.6-5.1)
[2023-05-12 07:15] LABS: ALBUMIN 1.8 g/dL (3.5-5.0); ALBUMIN/GLOBULIN RATIO 0.7 (0.8-2.0); ANION GAP 11.2 mmol/L (8-16); CALCIUM 7.4 mg/dL (8.4-10.2); CREATININE, SERUM 1.61 mg/dL (0.57-1.11); POTASSIUM 4.2 mmol/L (3.5-5.1)
[2023-05-12 08:32] LABS: EOSINOPHILS % (MANUAL) 1 % (0-7); LYMPHOCYTES % (MANUAL) 13 % (19-48); MYELOCYTES % (MANUAL) 1 % (0-0); NEUTROPHILS % (MANUAL) 85 % (40-74); NUCLEATED RED BLOOD CELLS 46
[2023-05-12 08:33] LABS: PLATELET ESTIMATE ADEQUATE; PLATELET MORPHOLOGY COMMENT NORMAL; RBC MORPHOLOGY COMMENT NORMAL
[2023-05-12] MEDS: MULTIVITAMINS/MINERALS TAB PO SCH (08:42)
[2023-05-12] MEDS: FOLIC ACID 1 MG TAB PO SCH (08:42)
[2023-05-12] MEDS: METOPROLOL TARTRATE 25 MG TAB PO SCH ×2 (08:42→21:15)
[2023-05-12] MEDS: SODIUM BICARBONATE 650 MG TAB PO SCH ×2 (08:42→17:36)
[2023-05-12] MEDS: CYANOCOBALAMIN INJ 1,000 MCG/ML VIAL IM SCH (08:43)
[2023-05-12] MEDS: KCL 20 MEQ PACKET/ ORAL SOLN NG SCH (08:43)
[2023-05-12] MEDS: MUPIROCIN 2% OINT 22 GM TUBE TOP SCH ×2 (08:44→21:15)
[2023-05-12] MEDS: BALSAM PERU/CASTOR OIL 60 GM OINT...G. TP SCH (08:44)
[2023-05-12] MEDS: INSULIN REGULAR, HUMAN 100 UNIT/1 ML SQ SCH ×3 (08:46→17:39)
[2023-05-12] MEDS: OCTREOTIDE ACETATE 500 MCG in SODIUM CHLORIDE 0.9% 250ML 249 ML IV SCH (09:20)
[2023-05-12] MEDS ORDERED: DEXTROSE 5% 1,000 ML IV ONE (15:15)
[2023-05-12] MEDS ORDERED: SODIUM BICARBONATE 8.4% 50 ML in DEXTROSE 5% 1,000 ML IV ONE (15:30)
[2023-05-13] VITALS (13 sets, daily range): BP systolic 104–133; BP diastolic 57–79; PULSE 53–107; RESP 20–25; TEMP 99.8; O2SAT 97–100
[2023-05-13] MEDS: VANCOMYCIN 250MG/5ML ORAL SOLN PO SCH ×3 (00:24→11:29)
[2023-05-13] MEDS: METOCLOPRAMIDE HCL 10 MG/2ML VIAL IV SCH ×3 (00:24→11:29)
[2023-05-13] MEDS: INSULIN REGULAR, HUMAN 100 UNIT/1 ML SQ SCH ×3 (00:26→11:31)
[2023-05-13] MEDS: METRONIDAZOLE 500MG/NS 100ML 100 ML IV SCH (05:59)
[2023-05-13 06:51] LABS: BASOPHILS # (AUTO) 0.1 (0.0-0.1); BASOPHILS % 0.4 % (0.0-1.0); EOSINOPHILS # (AUTO) 0.1 (0.0-0.4); EOSINOPHILS % 0.4 % (0.0-6.0); HEMATOCRIT 31.1 % (34.2-44.1); HEMOGLOBIN 9.6 g/dL (12.0-16.0); LYMPHOCYTES # (AUTO) 1.6 (1.0-3.2); LYMPHOCYTES % 7.3 % (18.0-39.1); MEAN CORPUSCULAR HEMOGLOBIN 28.7 pg (28-32); MEAN CORPUSCULAR HGB CONC 30.9 g/dL (31-35); MEAN CORPUSCULAR VOLUME 93.1 fL (81-99); MONOCYTES # (AUTO) 1.3 (0.2-0.8); NEUTROPHILS % 79.7 % (38.7-80.0); PLATELET COUNT 208 x10e3/uL (140-360); RED BLOOD COUNT 3.34 x10e6/uL (3.6-5.1); RED CELL DISTRIBUTION WIDTH 20.5 % (11.7-14.4)
[2023-05-13 07:10] LABS: ALBUMIN 1.8 g/dL (3.5-5.0); ALBUMIN/GLOBULIN RATIO 0.8 (0.8-2.0); ANION GAP 10.9 mmol/L (8-16); CALCIUM 7.5 mg/dL (8.4-10.2); CREATININE, SERUM 1.37 mg/dL (0.57-1.11); POTASSIUM 3.9 mmol/L (3.5-5.1)
[2023-05-13] MEDS: KCL 20 MEQ PACKET/ ORAL SOLN NG SCH (08:02)
[2023-05-13] MEDS: SODIUM BICARBONATE 650 MG TAB PO SCH (08:02)
[2023-05-13] MEDS: MULTIVITAMINS/MINERALS TAB PO SCH (08:03)
[2023-05-13] MEDS: FOLIC ACID 1 MG TAB PO SCH (08:03)
[2023-05-13] MEDS: METOPROLOL TARTRATE 25 MG TAB PO SCH (08:03)
[2023-05-13] MEDS: BALSAM PERU/CASTOR OIL 60 GM OINT...G. TP SCH (08:05)
[2023-05-13] MEDS: CYANOCOBALAMIN INJ 1,000 MCG/ML VIAL IM SCH (08:05)
[2023-05-13 09:46] LABS: EOSINOPHILS % (MANUAL) 1 % (0-7); LYMPHOCYTES % (MANUAL) 4 % (19-48); MONOCYTES % (MANUAL) 8 % (3.4-9.0); NEUTROPHILS % (MANUAL) 87 % (40-74); NUCLEATED RED BLOOD CELLS 9; PLATELET ESTIMATE ADEQUATE; PLATELET MORPHOLOGY COMMENT NORMAL; RBC MORPHOLOGY COMMENT NORMAL; TARGET CELLS N
== END 2023-05-13 12:00 | DRG 308 ==
LOC: ER 15:26 → ERHOLD 18:22 → MED/SURG3 22:00 → OBSVTOIN 05-05 09:01 → ICU 05-05 17:40
PROVIDERS: ADMIT Internal Medicine; ATTEND Internal Medicine
PROC: 02HV33Z Insertion of Infusion Device into Superior Vena Cava, Percutaneous Approach (ICD-10-PCS; principal; 2023-05-07)
PROC: 5A0935A Assistance with Respiratory Ventilation, Less than 24 Consecutive Hours, High Flow/Velocity Cannula (ICD-10-PCS; 2023-05-08)
PROC: 0W993ZZ Drainage of Right Pleural Cavity, Percutaneous Approach (ICD-10-PCS; 2023-05-10)
DX: I48.0 Paroxysmal atrial fibrillation (principal); G93.41 Metabolic encephalopathy; I50.43 Acute on chronic combined systolic (congestive) and diastolic (congestive) heart failure; J69.0 Pneumonitis due to inhalation of food and vomit; J96.00 Acute respiratory failure, unspecified whether with hypoxia or hypercapnia; M62.82 Rhabdomyolysis; N17.9 Acute kidney failure, unspecified; N39.0 Urinary tract infection, site not specified; I13.0 Hypertensive heart and chronic kidney disease with heart failure and stage 1 through stage 4 chronic kidney disease, or unspecified chronic kidney disease; K55.9 Vascular disorder of intestine, unspecified; E87.20 Acidosis, unspecified; E87.3 Alkalosis; E44.0 Moderate protein-calorie malnutrition; J90 Pleural effusion, not elsewhere classified; I25.10 Atherosclerotic heart disease of native coronary artery without angina pectoris; E78.5 Hyperlipidemia, unspecified; K44.9 Diaphragmatic hernia without obstruction or gangrene; R29.6 Repeated falls; D63.1 Anemia in chronic kidney disease; K29.70 Gastritis, unspecified, without bleeding; E87.6 Hypokalemia; E11.65 Type 2 diabetes mellitus with hyperglycemia; E88.09 Other disorders of plasma-protein metabolism, not elsewhere classified; R62.7 Adult failure to thrive; N18.9 Chronic kidney disease, unspecified; E11.22 Type 2 diabetes mellitus with diabetic chronic kidney disease; E11.40 Type 2 diabetes mellitus with diabetic neuropathy, unspecified; Z20.822 Contact with and (suspected) exposure to COVID-19; Z90.49 Acquired absence of other specified parts of digestive tract; Z96.659 Presence of unspecified artificial knee joint; Z79.4 Long term (current) use of insulin; Z79.82 Long term (current) use of aspirin; Z66 Do not resuscitate; Z68.24 Body mass index [BMI] 24.0-24.9, adult
CPT/HCPCS: 32555; 36415; 36569; 36600; 70450; 71045; 74018; 74176; 76604; 76770; 80053; 80307; 80320; 80329; 81001; 82550; 82607; 82746; 82805; 82948; 83540; 83605; 83615; 83630; 83690; 83735; 83993; 84157; 84436; 84443; 84466; 84479; 84484; 85025; 85045; 85610; 85730; 87040; 87045; 87070; 87177; 87205; 87324; 87449; 89051; 93005; 93306; 94799; 96372; 99252; 99284; G0378; J0692; J0696; J1644; J1756; J1940; J2353; J2354; J2405; J2765; J3420; J3480; J7030; J7050; J7070